=== PATIENT | male | born 1990 | race Caucasian/White ===

== ENCOUNTER 2016-11-13 19:11 | Emergency (ER) | payer OTHER ==
[2016-11-13 19:19] VITALS: BP 148/83
--- NOTE | 2016-11-13 19:34 | UC ---
Respiratory Complaint HPI - HPI Summary HPI Summary: when he goes to [facility] he gets this harsh cough---sometimes lasting up to 6 months, no fevers, chills otherwise feels well, - History of Current Complaint Chief Complaint: UCRespiratory Stated Complaint: COUGH Time Seen by Provider: 11/13/16 19:25 Hx Obtained From: Patient Onset/Duration: Sudden Onset, Lasting Weeks, Still Present Timing: Constant Character: Cough: Nonproductive Aggravating Factors: Allergens - has been told by other providers this is due to allergies Alleviating Factors: Nothing Associated Signs And Symptoms: Positive: Negative - Allergies/Home Medications Allergies/Adverse Reactions: Allergies Allergy/AdvReac Type Severity Reaction Status Date / Time No Known Allergies Allergy Verified 11/13/16 19:19 PMH/Surg Hx/FS Hx/Imm Hx Previously Healthy: Yes - Surgical History Surgical History: None - Family History Known Family History: Positive: None Family History: no known cardiovascular issues in family lineage - Social History Occupation: Employed Full-time Lives: With Family Alcohol Use: None Substance Use Type: None Smoking Status (MU): Never Smoked Tobacco Review of Systems Constitutional: Negative Skin: Negative Eyes: Negative ENT: Negative Respiratory: Cough Cardiovascular: Negative Gastrointestinal: Negative Genitourinary: Negative Motor: Negative Neurovascular: Negative Musculoskeletal: Negative Neurological: Negative Psychological: Negative All Other Systems Reviewed And Are Negative: Yes Physical Exam Triage Information Reviewed: Yes Appearance: Well-Appearing, No Pain Distress, Well-Nourished Vital Signs: Initial Vital Signs Temp 97.7 F 11/13/16 19:14 Pulse 92 11/13/16 19:14 Resp 18 11/13/16 19:14 BP 148/83 11/13/16 19:14 Pulse Ox 99 11/13/16 19:14 Vital Signs Reviewed: Yes Eye Exam: Normal Eyes: Positive: Conjunctiva Clear ENT Exam: Normal ENT: Positive: Normal ENT inspection, Hearing grossly normal, Pharynx normal, TMs normal. Negative: Nasal congestion, Nasal drainage, Tonsillar swelling, Tonsillar exudate, Trismus, Muffled/hoarse voice Dental Exam: Normal Neck exam: Normal Neck: Positive: Supple, Nontender, No Lymphadenopathy Respiratory Exam: Normal Respiratory: Positive: Chest non-tender, Lungs clear, Normal breath sounds, No respiratory distress, No accessory muscle use Cardiovascular Exam: Normal Cardiovascular: Positive: RRR, No Murmur, Pulses Normal, Brisk Capillary Refill Musculoskeletal Exam: Normal Musculoskeletal: Positive: Strength Intact, ROM Intact, No Edema Neurological Exam: Normal Neurological: Positive: Alert, Muscle Tone Normal Psychological Exam: Normal Skin Exam: Normal UC Diagnostic Evaluation - Laboratory O2 Sat by Pulse Oximetry: 99 Respiratory Course/Dx - Course Course Of Treatment: prednisone, albuterol, follow with Dr. Espinosa follow with pcp re-check prn - Differential Dx/Diagnosis Differential Diagnosis/HQI/PQRI: Asthma, Bronchitis, Lower Resp Infection, Sinusitis Provider Diagnoses: Bronchospasm, enviromental allergies Discharge - Discharge Plan Condition: Stable Disposition: HOME Prescriptions: Albuterol HFA INHALER* [Ventolin HFA Inhaler*] 2 puff INH Q4H PRN #1 mdi PRN Reason: cough predniSONE TAB* [Deltasone TAB*] 50 mg PO QAM #4 tab Patient Education Materials: How to Use a Metered-Dose Inhaler (ED), Allergies (ED), Bronchospasm (ED) Referrals: [facility] [[facility]] - If Needed Carlton Espinosa MD [Medical Doctor] - 1 Week
== END 2016-11-13 19:40 | disposition home or self-care (01) ==
LOC: UCEAST 19:11
DX: J98.01 Acute bronchospasm (principal); J30.2 Other seasonal allergic rhinitis
CPT/HCPCS: 99202; G0463

== ENCOUNTER 2016-12-07 08:55 | Emergency (ER) | payer OTHER ==
[2016-12-07 09:26] VITALS: BP 122/86
--- NOTE | 2016-12-07 10:46 | UC ---
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 started after "flu-like" symps. now has very dry deep cough during day-does not cough at night. no other close contacts with same symps. Has had same symps after returning from [facility] in past. describes bad cough that lasts 2-3 mo and then :just disappears". rececntly was placed on Biaxin by lending activities supervisor and has been using ProAir inhaler w/ o relief. No SOB, but R side of ribs are starting to hurt. Timing: Intermittent Episodes Severity Initially: Moderate Severity Currently: Moderate Character: Cough: Nonproductive Aggravating Factors: Exertion, Deep Breaths Alleviating Factors: Nothing Associated Signs And Symptoms: Negative: Fever, Chills, Hemoptysis, Calf Pain, Nasal Congestion, Sinus Discomfort Related History: Similar Episode/Dx as: - asthma - Allergies/Home Medications Allergies/Adverse Reactions: Allergies Allergy/AdvReac Type Severity Reaction Status Date / Time No Known Allergies Allergy Verified 12/07/16 09:26 Home Medications: Home Medications Clarithromycin TAB* [Biaxin TAB*] 500 mg PO BID 12/07/16 [History Confirmed ] PMH/Surg Hx/FS Hx/Imm Hx Previously Healthy: Yes Cardiovascular History Of: Denies: Hypertension Respiratory History Of: Reports: Asthma GI/ History Of: Denies: Gastroesophageal Reflux, Gastrointestinal Bleed Psychological History Of: Denies: Anxiety, Depression Other History Of: Negative For: HIV, Hepatitis C - Surgical History Surgical History: None - Family History Known Family History: Positive: None Family History: no known cardiovascular issues in family lineage - Social History Occupation: Employed Full-time - owns computer business Lives: With Family - Alcohol Use: None Substance Use Type: None Smoking Status (MU): Never Smoked Tobacco - Immunization History Immunizations Comment: pt states he has had TB vaccine in [facility] Review of Systems Constitutional: Negative Skin: Negative ENT: Negative Respiratory: Cough Cardiovascular: Negative Gastrointestinal: Negative Musculoskeletal: Negative Neurological: Negative Psychological: Negative All Other Systems Reviewed And Are Negative: Yes Physical Exam Triage Information Reviewed: Yes Appearance: Well-Appearing, No Pain Distress, Well-Nourished Vital Signs: Initial Vital Signs Temp 98.5 F 12/07/16 09:18 Pulse 79 12/07/16 09:18 Resp 18 12/07/16 09:18 BP 122/86 12/07/16 09:18 Pulse Ox 98 12/07/16 09:18 Vital Signs Reviewed: Yes Eye Exam: Normal ENT Exam: Normal ENT: Positive: TMs normal. Negative: Pharyngeal erythema, Nasal drainage Dental Exam: Normal Respiratory: Positive: Lungs clear, No respiratory distress, Other: - frequent harsh dry cough Cardiovascular Exam: Normal Cardiovascular: Positive: RRR, No Murmur, Pulses Normal, Brisk Capillary Refill Musculoskeletal Exam: Normal Musculoskeletal: Positive: Strength Intact, ROM Intact Neurological Exam: Normal Neurological: Positive: Alert Psychological Exam: Normal Skin Exam: Normal Skin: Negative: rashes UC Diagnostic Evaluation - Laboratory O2 Sat by Pulse Oximetry: 98 Respiratory Course/Dx - Course Course Of Treatment: Pt states he cannot stay to complete treatment and evaluation of cough.(understands I would like to try nebulizer tx) becuase he has a "business to run". Patient encouraged to return here or ER at his earliest convenience and especially if symps worsen - Differential Dx/Diagnosis Differential Diagnosis/HQI/PQRI: Asthma, Bronchitis, Lower Resp Infection, Sinusitis, Tuberculosis Provider Diagnoses: cough Discharge - Discharge Plan Condition: Stable Disposition: AGAINST MEDICAL ADVICE Discharge Disposition Comment: pat states he cannot stay to complete treatment and evaluation of cough
--- NOTE | 2016-12-07 11:00 | RAD ---
INDICATION: Persistent cough COMPARISON: None TECHNIQUE: PA and lateral dual-energy views were obtained. FINDINGS: Bones/Soft Tissues: There are no acute bony findings. Cardiomediastinal: The cardiomediastinal silhouette is normal. Lungs: There are no infiltrates. Pleura: There are no pleural effusions. Other: None IMPRESSION: NO ACTIVE DISEASE.
[2016-12-07] MEDS ORDERED: Ipratropium 0.5MG/2.5ML NEB* 0.5 MG/2.5 ML NEB.SOLN INH ONE (11:03)
[2016-12-07] MEDS ORDERED: Albuterol 2.5 MG/3 ML NEB.SOL* (0.083%) INH ONE (11:03)
--- NOTE | 2016-12-13 10:58 | UC ---
Progress - Progress Note Progress Note: Patient called the urgent care. I had seen him before and talked to him after his visit with me to see how well he was doing. He really had not started the medication. However, today, he states that he has much improved with his medication but still has a cough. He has run out of his cough medication and would like some more. He is in the process of getting a primary care provider, but has not gotten one yet. He was told since he is improving that I'll renew his cough medication one more time, but if he is not able to see his primary care provider after this second supply of cough medication runs out, he would need to be seen again here.
== END 2016-12-07 11:14 | disposition left against medical advice (07) ==
LOC: UCEAST 08:55
DX: R05 Cough (principal); J45.909 Unspecified asthma, uncomplicated
CPT/HCPCS: 71020; 99202; G0463

== ENCOUNTER 2016-12-07 16:32 | Emergency (ER) | payer OTHER ==
[2016-12-07 18:07] VITALS: BP 129/72
--- NOTE | 2016-12-07 20:31 | UC ---
Respiratory Complaint HPI - HPI Summary HPI Summary: The patient comes in today for: 1. Episodic chronic cough: Onset: Initial episode in 2004, with second episode 2013, and third time-- October 18. Palliative/provocative: Quality: Region: Severity: Time: Associated symptoms: Previous disease: 2004: [place] He had sore throat--runny nose, and the cough. When he talked and breathed warm air it was worse. He saw doctors there in [place], he was diagnosed as having bronchitis. Treatment was antibiotic and inhaler which did not help. He ended up coughing for about 7 months. He did not cough up any blood or fevers. No dyspnea. Cough was dry. 2013: He went back to [place] where he got another episode of sore throat -runny nose and cough. The cough was dry. The cough was present for 2 months. He did not have any dyspnea. He denies any history of asthma. He was given an antibiotic. He gave up on it after 4 days. 10-18-16: He suffered a sore throat, fatigue/malaise, cough. He has had it ever since. Dyspnea: None. Talking makes it worse. Cold air makes it worse. Rhinitis: Negative. Cough is dry. Wheezing: sometimes--"it happened a couple of times." Fever: None. Treatment since started Albuterol did not help. He was started on Clarithromycin 500 mg bid. He has been on this for 7 days. He saw the linux system engineer 7 days ago. He had Pre and post albuterol PFT's. He does not think that he had a difference. He has not had any allergy testing. GERD: He complains of GERD. He complains of a sour taste in his mouth. He likes to eat garlic, onions tomato sauces. Morning: once he gets out of bed , he starts coughing. He denies any post nasal drip or rhinitis. He was seen this morning, and did not stay. He had CXR which was normal. He denies any unexplained weight loss. 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 * - History of Current Complaint Chief Complaint: UCRespiratory Stated Complaint: CHEST CONGESTION Time Seen by Provider: 12/07/16 19:43 Hx Obtained From: Patient - Allergies/Home Medications Allergies/Adverse Reactions: Allergies Allergy/AdvReac Type Severity Reaction Status Date / Time No Known Allergies Allergy Verified 12/07/16 09:26 PMH/Surg Hx/FS Hx/Imm Hx Previously Healthy: Yes - episodic chronic cough. Endocrine History Of: Denies: Diabetes, Thyroid Disease, Hyperthyroidism, Hypothyroidism, Dyslipidemia Cardiovascular History Of: Denies: Cardiac Disorders, Hypertension, Pacemaker/ICD, Myocardial Infarction , Congestive Heart Failure, Atrial Fibrillation, Deep Vein Thrombosis, Bleeding Disorders Respiratory History Of: Denies: COPD, Asthma, Bronchitis, Pneumonia, Pulmonary Embolism GI/ History Of: Reports: Gastroesophageal Reflux Denies: Ulcer, Gastrointestinal Bleed, Gall Bladder Disease, Kidney Stones, Diverticulitis, Renal Disease, Urosepsis Neurological History Of: Denies: TIA, CVA, Dementia, Seizures, Migraine Psychological History Of: Denies: Anxiety, Depression, Bipolar Disorder, Schizophrenia, Post Traumatic Stress Disorder Cancer History Of: Denies: Lung Cancer, Colorectal Cancer, Breast Cancer, Prostate Cancer, Cervical Cancer Other History Of: Negative For: HIV, Hepatitis B, Hepatitis C, Anticoagulant Therapy - Surgical History Surgical History: None - Family History Known Family History: Positive: Cardiac Disease, Hypertension Negative: Diabetes Family History: no known cardiovascular issues in family lineage - Social History Occupation: Employed Full-time Alcohol Use: None Substance Use Type: None Smoking Status (MU): Never Smoked Tobacco - Immunization History Immunizations Comment: pt states he has had TB vaccine in [facility] Review of Systems Constitutional: Negative Skin: Negative Eyes: Negative ENT: Negative Respiratory: Cough Cardiovascular: Chest Pain - Below the right nipple Gastrointestinal: Negative Genitourinary: Negative Motor: Negative Neurovascular: Negative All Other Systems Reviewed And Are Negative: Yes Physical Exam Triage Information Reviewed: Yes Appearance: Well-Appearing, No Pain Distress, Well-Nourished, Other: - He is frequently coughing, but it is a dry cough. Vital Signs: Initial Vital Signs Temp 98.7 F 12/07/16 18:02 Pulse 82 12/07/16 18:02 Resp 18 12/07/16 18:02 BP 129/72 12/07/16 18:02 Pulse Ox 99 12/07/16 18:02 Vital Signs Reviewed: Yes Eyes: Positive: Conjunctiva Clear. Negative: Discharge ENT: Positive: Hearing grossly normal. Negative: Pharyngeal erythema, Nasal congestion, Nasal drainage, TM bulging, TM dull, TM red, Tonsillar swelling, Tonsillar exudate Dental: Negative: Gross Decay/Caries @, Dental Fracture @ Neck: Positive: Supple, Nontender, No Lymphadenopathy. Negative: Nuchal Rigidity Respiratory: Positive: Lungs clear, No respiratory distress, No accessory muscle use. Negative: Crackles, Wheezing Cardiovascular: Positive: RRR, No Murmur Abdomen Description: Positive: Nontender, No Organomegaly, Soft. Negative: Distended, Guarding Musculoskeletal: Positive: Strength Intact, ROM Intact, No Edema, Other: - There is tenderness to palpation of the right, anterior lower rib margin. Neurological: Positive: Alert, Muscle Tone Normal Psychological: Positive: Age Appropriate Behavior, Consolable Skin: Negative: rashes, breakdown UC Diagnostic Evaluation - Laboratory O2 Sat by Pulse Oximetry: 99 Diagnostic Studies Comment: CXR done today: No abnormality. Respiratory Course/Dx - Differential Dx/Diagnosis Differential Diagnosis/HQI/PQRI: Bronchitis, Sinusitis, Other - GERD Provider Diagnoses: Post infectious cough. Discharge - Discharge Plan Condition: Stable Disposition: HOME Patient Education Materials: Chronic Cough (ED), Gastroesophageal Reflux Disease (ED) Referrals: No Primary Care Phys,NOPCP [Primary Care Provider] - 1 Week (Please see your primary care provider in about a week to see how well you are doing. If you don't have a primary care provider, please contact the physician referral service. If you can't get in timely, please you may come back to see us until you can. If you get worse, please be seen sooner by us or the ER.) Additional Instructions: Your diagnosis is "post infectious cough" besides gastroesophageal reflux.
== END 2016-12-07 21:11 | disposition home or self-care (01) ==
LOC: UCEAST 16:32
DX: R05 Cough (principal); R07.9 Chest pain, unspecified
CPT/HCPCS: 99212; G0463